=== PATIENT | female | born 1980 | race Caucasian/White ===

== ENCOUNTER → 2017-05-08 | Outpatient (CLI) | payer MEDICARE, MEDICAID ==
[~2017-05-08] MED LIST: GADOBUTROL 7.5 MMOL/7.5 ML PFS ONE
== END | disposition home or self-care (01) ==
LOC: RAD 12:03 → EDSTATUS 12:45
PROVIDERS: ATTEND Psychiatry & Neurology Neurology
DX: R51 Headache (principal); R53.1 Weakness; R47.81 Slurred speech; R09.89 Other specified symptoms and signs involving the circulatory and respiratory systems
CPT/HCPCS: 70553; A9585